=== PATIENT | female | born 1980 | race Two or more races ===

== ENCOUNTER 2017-02-03 16:39 | Inpatient (IN) | payer OTHER ==
[2017-02-03 18:48] VITALS: BMI 23.4
--- NOTE | 2017-02-03 21:15 | HP ---
Admission ROS [facility] Chief Complaint: SEEKING REHAB SERVICES Allergies/Adverse Reactions: Allergies Allergy/AdvReac Type Severity Reaction Status Date / Time No Known Drug Allergies Allergy Unknown Verified 02/03/17 20:24 fish derived AdvReac Swelling Verified 02/03/17 20:24 History of Present Illness: 36 Y.O. WOMAN WITH A HISTORY OF CRACK-COCAINE DEPENDENCE IS HERE SEEKING REHAB SERVICES. SHE REPORTS SHE LAST COMPLETED REHAB IN June, AT [facility]. DOES NOT HAVE A SIGNIFICANT PERIOD CLEAN. Exam Limitations: No Limitations - Ebola screening Have you traveled outside of the country in the last 21 days: No Have you had contact with anyone from an Ebola affected area: No Have you been sick,other than usual withdrawal symptoms: No Do you have a fever: No - Review of Systems Constitutional: Loss of Appetite, Unintentional Wgt. Loss EENT: reports: No Symptoms Reported Respiratory: reports: No Symptoms reported Cardiac: reports: No Symptoms Reported GI: reports: No Symptoms Reported : reports: No Symptoms Reported Musculoskeletal: reports: No Symptoms Reported Integumentary: reports: No Symptoms Reported Neuro: reports: No Symptoms reported Endocrine: reports: No Symptoms Reported Hematology: reports: No Symptoms Reported Psychiatric: reports: Anxious, Depressed, other (BIPOLAR) Other Systems: Reviewed and Negative Patient History - Patient Medical History Hx Anemia: No Hx Asthma: No Hx Chronic Obstructive Pulmonary Disease (COPD): No Hx Cancer: No Hx Cardiac Disorders: No Hx Congestive Heart Failure: No Hx Hypertension: No Hx Hypercholesterolemia: No Hx Pacemaker: No HX Cerebrovascular Accident: No Hx Seizures: No Hx Dementia: No Hx Diabetes: No Hx Gastrointestinal Disorders: No Hx Liver Disease: No Hx Genitourinary Disorders: No Hx Sexually Transmitted Disorders: No Hx Renal Disease (ESRD): No Hx Thyroid Disease: No Hx Human Immunodeficiency Virus (HIV): No (negative) Hx Hepatitis C: No Hx Depression: Yes Hx Suicide Attempt: No Hx Bipolar Disorder: Yes Hx Schizophrenia: No - Patient Surgical History Past Surgical History: No - PPD History Previous Implant?: Yes Documented Results: Negative w/proof Date: 05/17/15 Results: 0mm PPD to be Administered?: Yes - Reproductive History Patient is a Female of Child Bearing Age (11 -55 yrs old): Yes Last Menstrual Period: 02/03/17 Patient : No - Smoking Cessation Smoking history: Current every day smoker Have you smoked in the past 12 months: Yes Aproximately how many cigarettes per day: 3 Hx Chewing Tobacco Use: No Initiated information on smoking cessation: Yes 'Breaking Loose' booklet given: 02/03/17 - Substance & Tx. History Hx Alcohol Use: No Hx Substance Use: Yes Substance Use Type: Cocaine Hx Substance Use Treatment: Yes (REHAB: 06/2016 AT [facility] ) - Substances Abused Cocaine Route: Smoking Frequency: Daily Amount used: $200 Age of first use: 29 Date of Last Use: 02/02/17 Family Disease History - Family Disease History Family Disease History: Other: Mother (alcohol dependence ) Admission Physical Exam [facility] - Vital Signs Vital Signs: Vital Signs - 24 hr 02/03/17 18:46 Temperature 97.7 F Pulse Rate 83 Respiratory 20 Rate Blood Pressure 98/61 - Physical General Appearance: Yes: Disheveled, Irritable, Anxious HEENTM: Yes: Hearing grossly Normal, Normocephalic, Normal Voice Respiratory: Yes: Chest Non-Tender, Lungs Clear, Normal Breath Sounds, No Respiratory Distress, No Accessory Muscle Use Neck: Yes: No masses,lesions,Nodules, Trachea in good position Breast: Yes: Breast Exam Deferred Cardiology: Yes: Regular Rhythm, Regular Rate Abdominal: Yes: Non Tender, Flat, Soft Genitourinary: Yes: Other (NO COMPLAINTS REPORTED) Back: Yes: Normal Inspection Musculoskeletal: Yes: full range of Motion, Gait Steady, Pelvis Stable Extremities: Yes: Normal Capillary Refill, Normal Inspection, Non-Tender 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, Fully Oriented, Alert, Normal Mood/ Affect, Normal Response Integumentary: Yes: Normal Color, Dry, Warm Lymphatic: Yes: Within Normal Limits - Diagnostic (1) Cocaine dependence Current Visit: Yes Status: Chronic Cleared for Admission [facility] - Detox or Rehab [facility] Level of Care: Observation Bed Detox Regimen/Protocol: Not Applicable Claeared for Rehab Admission: Yes [facility] Breath Alcohol Content Breath Alcohol Content: 0 Urine Pregancy Test - Result Urine Test Results: Negative- NO Line Present Urine Drug Screen - Results Drug Screen Negative: No Urine Drug Screen Results: THC-Marijuana, MARIANELA-Cocaine Inpatient Rehab Admission - Initial Determination Are CD services needed?: Yes Free of communicable disease: Yes Not in need of hospitalization: Yes - Rehab Admission Criteria Previous failed treatment: Yes Poor recovery environment: Yes Comorbidities: No Lacks judgement: No Patient is meeting Inpatient Rehab admission criteria:: Yes
[2017-02-03] MEDS ORDERED: MAG HYDROX/AL HYDROX/SIMETH 30 ML UNIT-DOSE CUP PO PRN (21:23)
[2017-02-03] MEDS ORDERED: P-EPHED 60MG/TRIPROLIDI 2.5MG TABLET PO PRN (21:23)
[2017-02-03] MEDS ORDERED: ACETAMINOPHEN 325 MG TABLET (FP) PO PRN (21:23)
[2017-02-03] MEDS ORDERED: LOPERAMIDE HCL 2 MG CAPSULE PO PRN (21:23)
[2017-02-03] MEDS ORDERED: IBUPROFEN 400 MG TABLET (FP) PO PRN (21:23)
[2017-02-03] MEDS ORDERED: guaiFENesin/D-METHORPHAN HB 10 ML UNIT-DOSE CUPS PO PRN (21:23)
[2017-02-03] MEDS ORDERED: MENTHOL/PHENOL 1 EACH UD MM PRN (21:23)
[2017-02-03] MEDS ORDERED: MAGNESIUM HYDROX 2400MG/30ML ORAL SUSPENSION 30 ML CUP PO PRN (21:23)
[2017-02-03] MEDS ORDERED: MAGNESIUM CITRATE 300 ML BOTTLE PO PRN (21:23)
[2017-02-03] MEDS ORDERED: QUEtiapine FUMARATE 100 MG TABLET (FP) PO SCH (22:00)
--- NOTE | 2017-02-03 23:07 | PN ---
[facility] Progress Note Note: Psychiatry Attending's vp production note : Called to enter orders for seroquel + trazodone. 36 y/o female with Bipolar Disorder.Known to [facility]. Addressing cocaine dependence.Non-adherent to [facility]PD care. Evidenced by last script for seroquel 300 mg po bid issued 08/20/16. Ms Granado is no longer followed at [facility] OPD clinic ([place]). Discharged from that program.Reason : not offered. Patient admits to lack of compliance with medication for " more than two months. " Currrently requesting seroquel 300 mg po bid + trazodone 150 mg po hs. No scripts for trazodone found through review of pharmacy claims. Psychiatric history discussed with patient via telephone. No labs available. test : negative, as per [facility] report. Current vitals (repeat) : BP = 106/71 P = 72 . Patient's discourse : coherent,logical and relevant.No acute complaints. Plan : Seroquel 100 mg po hs (one dose). Side effects/benefits discussed with patient.Agrees with careplan. Will meet with patient in AM for further discussion of medications. Previous records are revisited.Case discussed with nurse on duty.
[2017-02-03 23:31] LABS: URINE APPEARANCE SLCLOUDY; URINE BILIRUBIN NEGATIVE (NEGATIVE); URINE BLOOD 3+ (NEGATIVE); URINE COLOR AMBER; URINE GLUCOSE (UA) NEGATIVE (NEGATIVE); URINE KETONE NEGATIVE (NEGATIVE); URINE NITRITE NEGATIVE (NEGATIVE)
[2017-02-03] MEDS: THIAMINE HCL 100 MG TABLET (FP) PO SCH (23:35)
[2017-02-03 23:38] LABS: URINE PROTEIN 1+ (NEGATIVE)
[2017-02-03 23:43] LABS: URINE BACTERIA RARE /hpf (NONE SEEN); URINE MUCUS MANY; URINE RBC 166 /hpf (0-3); URINE WBC 7 /hpf (3-5)
[2017-02-04] MEDS: PRENATAL VITAMINS W/ FOLIC ACID TABLET (FP) PO SCH (09:38)
--- NOTE | 2017-02-04 10:37 | PN ---
[facility] Progress Note Note: Attending's note : Met with patient. Medications discussed.
[2017-02-04 10:53] LABS: MCH 31.2 pg (25.7-33.7); MCHC 33.4 g/dl (32.0-36.0); MEAN CELL VOLUME 93.3 fl (80-96); MEAN PLT VOLUME 8.7 fl (7.5-11.1); PLATELET COUNT 254 K/MM3 (134-434); RDW 14.5 % (11.6-15.6); WHITE BLOOD COUNT 6.6 K/mm3 (4.0-10.0)
[2017-02-04 11:04] LABS: ALBUMIN 2.9 g/dl (3.4-5.0); ALK PHOS 50 U/L (45-117); ANION GAP 9 (8-16); BILIRUBIN,TOTAL 0.2 mg/dL (0.2-1.0); CO2 27 mmol/L (21-32); CREATININE 0.7 mg/dL (0.55-1.02); GLUCOSE,RANDOM 86 mg/dL (74-106); SGOT/AST 9 U/L (15-37); SGPT/ALT 17 U/L (12-78); TOT PROT 5.6 g/dl (6.4-8.2)
[2017-02-04] MEDS: QUEtiapine FUMARATE 100 MG TABLET (FP) PO SCH ×2 (11:47→21:36)
[2017-02-04 11:53] LABS: URINE LEUK ESTERASE Negative (NEGATIVE)
--- NOTE | 2017-02-04 12:52 | EKG ---
Test Reason : Blood Pressure : / mmHG Vent. Rate : 069 BPM Atrial Rate : 072 BPM P-R Int : 128 ms QRS Dur : 072 ms QT Int : 430 ms P-R-T Axes : 050 050 025 degrees QTc Int : 460 ms SINUS RHYTHM WITH PREMATURE SUPRAVENTRICULAR COMPLEXES OTHERWISE NORMAL ECG NO PREVIOUS ECGS AVAILABLE Confirmed by ROSI HEARD MD ([id number]) on 02/04/2017 12:51:57 PM Referred By: Confirmed By:ROSI HEARD MD
[2017-02-04 13:26] LABS: HIV 1 & 2 AB NEGATIVE; HIV 1 AGp24 NEGATIVE
[2017-02-04] MEDS: THIAMINE HCL 100 MG TABLET (FP) PO SCH (21:36)
[2017-02-05] MEDS: PRENATAL VITAMINS W/ FOLIC ACID TABLET (FP) PO SCH (09:56)
[2017-02-05] MEDS: QUEtiapine FUMARATE 100 MG TABLET (FP) PO SCH ×2 (09:56→21:32)
--- NOTE | 2017-02-05 11:42 | EKG ---
Test Reason : Blood Pressure : / mmHG Vent. Rate : 072 BPM Atrial Rate : 072 BPM P-R Int : 130 ms QRS Dur : 074 ms QT Int : 434 ms P-R-T Axes : -02 048 039 degrees QTc Int : 475 ms NORMAL SINUS RHYTHM NORMAL ECG WHEN COMPARED WITH ECG OF 03-FEB-2017 22:06, PREMATURE SUPRAVENTRICULAR COMPLEXES ARE NO LONGER PRESENT Confirmed by ROSI HEARD MD ([id number]) on 02/05/2017 11:42:28 AM Referred By: Confirmed By:ROSI HEARD MD
[2017-02-05] MEDS: THIAMINE HCL 100 MG TABLET (FP) PO SCH (21:32)
[2017-02-06] MEDS: PRENATAL VITAMINS W/ FOLIC ACID TABLET (FP) PO SCH (10:01)
[2017-02-06] MEDS: QUEtiapine FUMARATE 100 MG TABLET (FP) PO SCH ×2 (10:01→21:29)
--- NOTE | 2017-02-06 10:56 | HP ---
Psychiatrist Admission - Data Date of interview: 02/06/17 Admission source: [facility] Identifying data: This is one of the multiple admissions to [address] [place] [address] for this 36 years old female mother of 2 daughters ,resides with family,unemolyed. Medical History: unremarkable Psychiatric History: Patient started to see a psychiatrist since childhood when her mother abandonded her.She was placed on psychoatherapy.Patient was dx with Bipolar disorder about 11 years ago.No psychiatric hospitalizations,just a few ER visits.Patient stopped to see a psychiatrsit at [facility] in [facility] since she relapsed on drugs.Medications she was on recently:Seroquel 300 mg po hs and Trazodone 150 mg po hs. Physical/Sexual Abuse/Trauma History: denies Vital Signs: Vital Signs - 24 hr 02/06/17 02/06/17 03:30 07:32 Temperature 98.3 F Pulse Rate 73 Respiratory 18 18 Rate Blood Pressure 110/76 Allergies/Adverse Reactions: Allergies Allergy/AdvReac Type Severity Reaction Status Date / Time No Known Drug Allergies Allergy Unknown Verified 02/03/17 20:24 fish derived AdvReac Swelling Verified 02/03/17 20:24 Date of last physical exam: 02/03/17 Concur with the findings of this exam: Yes - Substance Abuse/Tx History Hx Alcohol Use: Yes (reports drinking since 13 yo,beer a few packs,vodka daily) Hx Substance Use: Yes (marijuana since 13 yo,cocaine 19 yo) Substance Use Type: Alcohol, Cocaine, Marijuana Hx Substance Use Treatment: Yes (completed this program in May 2015) Mental Status Exam - Mental Status Exam Alert and Oriented to: Time, Place, Person Cognitive Function: Grossly Intact Patient Appearance: Unkempt Mood: Sad, Anxious Affect: Mood Congruent, Labile Patient Behavior: Appropriate, Cooperative Speech Pattern: Clear Voice Loudness: Normal Thought Process: Goal Oriented Thought Disorder: Being Controlled Hallucinations: Denies Suicidal Ideation: Denies Homicidal Ideation: Denies Insight/Judgement: Fair Sleep: Difficulty falling asleep Appetite: Fair Muscle strength/Tone: Normal Gait/Station: Normal Psychiatric Findings - Problem List ([place] 1, 2,3) (1) Cocaine dependence Current Visit: Yes Status: Chronic (2) Alcohol dependence Current Visit: Yes Status: Chronic (3) Bipolar 2 disorder Current Visit: Yes Status: Chronic (4) Cannabis dependence Current Visit: Yes Status: Chronic - Initial Treatment Plan Initial Treatment Plan: Continue Seroquel 100 mg po bid and Trazodone 150 mg po hs.Will monitor progress.
[2017-02-06] MEDS: metroNIDAZOLE 250 MG TABLET PO SCH ×2 (14:12→21:29)
[2017-02-06] MEDS: THIAMINE HCL 100 MG TABLET (FP) PO SCH (21:29)
[2017-02-06] MEDS: MICONAZOLE NITRATE 100 MG SUPP SUPP.VAG PV SCH (21:30)
[2017-02-06] MEDS: traZODone HCL 50 MG TABLET (FP) PO SCH (21:31)
[2017-02-07] MEDS: PRENATAL VITAMINS W/ FOLIC ACID TABLET (FP) PO SCH (10:22)
[2017-02-07] MEDS: metroNIDAZOLE 250 MG TABLET PO SCH ×2 (10:22→21:36)
[2017-02-07] MEDS: QUEtiapine FUMARATE 100 MG TABLET (FP) PO SCH ×2 (10:22→21:36)
[2017-02-07] MEDS: traZODone HCL 50 MG TABLET (FP) PO SCH (21:36)
[2017-02-07] MEDS: THIAMINE HCL 100 MG TABLET (FP) PO SCH (21:36)
[2017-02-07] MEDS ORDERED: PT OWN MED DRAWER 7, Y5N ONE (21:37)
[2017-02-07] MEDS: MICONAZOLE NITRATE 100 MG SUPP SUPP.VAG PV SCH (21:37)
[2017-02-08] MEDS: metroNIDAZOLE 250 MG TABLET PO SCH ×2 (10:26→21:39)
[2017-02-08] MEDS: QUEtiapine FUMARATE 100 MG TABLET (FP) PO SCH ×2 (10:26→21:39)
[2017-02-08] MEDS: PRENATAL VITAMINS W/ FOLIC ACID TABLET (FP) PO SCH (10:27)
[2017-02-08] MEDS: hydrOXYzine PAMOATE 50 MG CAPSULE (FP) PO PRN (15:25)
[2017-02-08] MEDS: traZODone HCL 50 MG TABLET (FP) PO SCH (21:39)
[2017-02-08] MEDS: MICONAZOLE NITRATE 100 MG SUPP SUPP.VAG PV SCH (21:39)
[2017-02-08] MEDS: THIAMINE HCL 100 MG TABLET (FP) PO SCH (21:39)
[2017-02-08] MEDS: diphenhydrAMINE HCL 50 MG CAPSULE PO PRN (22:16)
[2017-02-09] MEDS: PRENATAL VITAMINS W/ FOLIC ACID TABLET (FP) PO SCH (10:16)
[2017-02-09] MEDS: metroNIDAZOLE 250 MG TABLET PO SCH ×2 (10:16→21:32)
[2017-02-09] MEDS: QUEtiapine FUMARATE 100 MG TABLET (FP) PO SCH ×2 (10:16→21:32)
[2017-02-09] MEDS: traZODone HCL 50 MG TABLET (FP) PO SCH (21:32)
[2017-02-09] MEDS: THIAMINE HCL 100 MG TABLET (FP) PO SCH (21:33)
[2017-02-09] MEDS: MICONAZOLE NITRATE 100 MG SUPP SUPP.VAG PV SCH (21:33)
[2017-02-09] MEDS: diphenhydrAMINE HCL 50 MG CAPSULE PO PRN (21:34)
[2017-02-10] MEDS: metroNIDAZOLE 250 MG TABLET PO SCH ×2 (10:46→21:40)
[2017-02-10] MEDS: QUEtiapine FUMARATE 100 MG TABLET (FP) PO SCH (10:46)
[2017-02-10] MEDS: PRENATAL VITAMINS W/ FOLIC ACID TABLET (FP) PO SCH (10:46)
[2017-02-10] MEDS: hydrOXYzine PAMOATE 50 MG CAPSULE (FP) PO PRN (18:30)
[2017-02-10] MEDS: traZODone HCL 50 MG TABLET (FP) PO SCH (21:40)
[2017-02-10] MEDS: QUEtiapine FUMARATE 50 MG TABLET PO SCH (21:40)
[2017-02-10] MEDS: diphenhydrAMINE HCL 50 MG CAPSULE PO PRN (21:40)
[2017-02-10] MEDS: THIAMINE HCL 100 MG TABLET (FP) PO SCH (21:40)
[2017-02-10] MEDS ORDERED: PT OWN MED DRAWER 7, Y5N ONE (21:42)
[2017-02-10] MEDS: MICONAZOLE NITRATE 100 MG SUPP SUPP.VAG PV SCH (21:43)
[2017-02-11] MEDS: metroNIDAZOLE 250 MG TABLET PO SCH ×2 (10:14→21:32)
[2017-02-11] MEDS: PRENATAL VITAMINS W/ FOLIC ACID TABLET (FP) PO SCH (10:14)
[2017-02-11] MEDS: QUEtiapine FUMARATE 100 MG TABLET (FP) PO SCH (10:15)
[2017-02-11] MEDS ORDERED: QUEtiapine FUMARATE 25 MG TABLET (FP) ONE (18:49)
[2017-02-11] MEDS: traZODone HCL 50 MG TABLET (FP) PO SCH (21:32)
[2017-02-11] MEDS: THIAMINE HCL 100 MG TABLET (FP) PO SCH (21:32)
[2017-02-11] MEDS: MICONAZOLE NITRATE 100 MG SUPP SUPP.VAG PV SCH (21:33)
[2017-02-11] MEDS: QUEtiapine FUMARATE 50 MG TABLET PO SCH (21:33)
[2017-02-11] MEDS: diphenhydrAMINE HCL 50 MG CAPSULE PO PRN (21:34)
[2017-02-12] MEDS: QUEtiapine FUMARATE 100 MG TABLET (FP) PO SCH (10:11)
[2017-02-12] MEDS: metroNIDAZOLE 250 MG TABLET PO SCH ×2 (10:11→21:31)
[2017-02-12] MEDS: PRENATAL VITAMINS W/ FOLIC ACID TABLET (FP) PO SCH (10:11)
[2017-02-12] MEDS ORDERED: PT OWN MED DRAWER 7, Y5N ONE (18:38)
[2017-02-12] MEDS: traZODone HCL 50 MG TABLET (FP) PO SCH (21:31)
[2017-02-12] MEDS: QUEtiapine FUMARATE 50 MG TABLET PO SCH (21:32)
[2017-02-12] MEDS: THIAMINE HCL 100 MG TABLET (FP) PO SCH (21:32)
[2017-02-12] MEDS: MICONAZOLE NITRATE 100 MG SUPP SUPP.VAG PV SCH (21:32)
[2017-02-13] MEDS: PRENATAL VITAMINS W/ FOLIC ACID TABLET (FP) PO SCH (10:37)
[2017-02-13] MEDS: QUEtiapine FUMARATE 100 MG TABLET (FP) PO SCH (10:37)
[2017-02-13] MEDS: metroNIDAZOLE 250 MG TABLET PO SCH (10:38)
--- NOTE | 2017-02-13 12:28 | PN ---
Psychiatric Progress Note Vital Signs: Vital Signs Period Temp Pulse Resp BP Sys/Navas Pulse Ox Last 24 Hr 97.8 F 83 16-18 106/68 Date of Session: 02/13/17 Chief Complaint:: " I am not at my regular dose of seroquel.I get anxious." HPI: Approached by patient with complaints of anxiety and refractory insomnia.Eager to get back to her " regular " dose of seroquel (300 mg po bid as per self-report). ROS: Unremarkable. Current Medications: Active Medications Generic Name Dose Route Start Last Admin Trade Name Freq PRN Reason Stop Dose Admin Acetaminophen 650 mg 02/03/17 21:23 Tylenol - PO Q4H PRN PAIN Al Hydroxide/Mg Hydroxide 30 ml 02/03/17 21:23 Mylanta Oral Suspension - PO Q6H PRN DYSPEPSIA Diphenhydramine HCl 50 mg 02/03/17 21:23 02/11/17 21:34 Benadryl - PO 50 mg HSMR1 PRN Administration INSOMNIA Eucalyptus/Menthol/Phenol/Sorbitol 1 each 02/03/17 21:23 Cepastat Lozenge - MM Q4H PRN SORE THROAT Guaifenesin 10 ml 02/03/17 21:23 Robitussin Dm - PO Q6H PRN COUGH Hydroxyzine Pamoate 50 mg 02/03/17 21:23 02/10/17 18:30 Vistaril - PO 50 mg Q4H PRN Administration AGITATION Ibuprofen 400 mg 02/03/17 21:23 Motrin - PO Q6H PRN SEVERE PAIN Loperamide HCl 4 mg 02/03/17 21:23 Imodium - PO Q6H PRN DIARRHEA Magnesium Citrate 300 ml 02/03/17 21:23 Citroma - PO Q48H PRN CONSTIPATION Magnesium Hydroxide 30 ml 02/03/17 21:23 Milk Of Magnesia - PO DAILY PRN CONSTIPATION Miconazole Nitrate 100 mg 02/06/17 22:00 02/12/17 21:32 Monistat-7 Vaginal Suppository - PV 1 supp HS ОЛЬГА Administration Multivit/Folic Acid/Iron 1 tab 02/04/17 10:00 02/13/17 10:37 Vitamins (Sjr) - PO 1 tab DAILY ОЛЬГА Administration Pseudoephedrine/Triprolidine 1 combo 02/03/17 21:23 Actifed - PO TID PRN NASAL CONGESTION Quetiapine Fumarate 200 mg 02/13/17 22:00 Seroquel - PO BID ОЛЬГА Thiamine HCl 100 mg 02/03/17 22:00 02/12/17 21:32 Vitamin B1 - PO 100 mg HS ОЛЬГА Administration Trazodone HCl 150 mg 02/06/17 22:00 02/12/17 21:31 Desyrel - PO 150 mg HS ОЛЬГА Administration Medication(s) Change(s): Seroquel is raised to 200 mg po bid (from 100 mg po bid ) with patient's verbal consent.Principles of sleep hygiene are also discussed with the patient. Current Side Effect: No Lab tests ordered: No Lab tests reviewed: Yes Provider note:: Patient is already known to this casualty underwriter (refer to my notes of + 02/04/17).Medications are reviewed.Patient is interviewed.She is casually attired,neat and well-related.Conversant and goal-directed.Fully aware of her medications.Patient declares that she is " still not at my best on the current dose of seroquel." Expects further titration as discussed with the patient on admission.Fair hospital course.Stable mental status.Patient maintains adequate rapport with staff. Total face to face time:: 30 Mental Status Exam - Mental Status Exam Alert and Oriented to: Time, Place, Person Cognitive Function: Good Patient Appearance: Well Groomed Mood: Hopeful, Euthymic Affect: Appropriate, Normal Range Patient Behavior: Appropriate, Cooperative Speech Pattern: Clear, Appropriate Voice Loudness: Normal Thought Process: Intact, Goal Oriented Thought Disorder: Not Present Hallucinations: Denies Suicidal Ideation: Denies Homicidal Ideation: Denies Insight/Judgement: Fair Sleep: Poorly, Difficulty falling asleep Appetite: Good Muscle strength/Tone: Normal Gait/Station: Normal Psychiatric Treatment Plan - Problem List (1) Alcohol dependence Current Visit: Yes (2) Cannabis dependence Current Visit: Yes (3) Cocaine dependence Current Visit: Yes (4) Bipolar disorder Current Visit: Yes Comment: On medications. (5) Substance induced mood disorder Current Visit: Yes (6) Insomnia Current Visit: Yes
[2017-02-13] MEDS: THIAMINE HCL 100 MG TABLET (FP) PO SCH (21:53)
[2017-02-13] MEDS: MICONAZOLE NITRATE 100 MG SUPP SUPP.VAG PV SCH (21:53)
[2017-02-13] MEDS: traZODone HCL 50 MG TABLET (FP) PO SCH (21:53)
[2017-02-13] MEDS: QUEtiapine FUMARATE 200 MG TABLET PO SCH (21:54)
[2017-02-14] MEDS: PRENATAL VITAMINS W/ FOLIC ACID TABLET (FP) PO SCH (10:24)
[2017-02-14] MEDS: QUEtiapine FUMARATE 200 MG TABLET PO SCH (10:24)
[2017-02-14] MEDS ORDERED: PT OWN MED DRAWER 7, Y5N ONE (21:39)
[2017-02-14] MEDS: THIAMINE HCL 100 MG TABLET (FP) PO SCH (21:40)
[2017-02-14] MEDS: traZODone HCL 50 MG TABLET (FP) PO SCH (21:40)
[2017-02-14] MEDS: QUEtiapine FUMARATE 100 MG TABLET (FP) PO SCH (21:40)
[2017-02-14] MEDS: MICONAZOLE NITRATE 100 MG SUPP SUPP.VAG PV SCH (21:42)
[2017-02-15] MEDS: QUEtiapine FUMARATE 100 MG TABLET (FP) PO SCH ×2 (10:27→21:30)
[2017-02-15] MEDS: PRENATAL VITAMINS W/ FOLIC ACID TABLET (FP) PO SCH (10:27)
--- NOTE | 2017-02-15 10:51 | PN ---
Psychiatric Progress Note Vital Signs: Vital Signs Period Temp Pulse Resp BP Sys/Navas Pulse Ox Last 24 Hr 97.8 F 76 16-18 112/77 Date of Session: 02/15/17 Chief Complaint:: Discharge visit HPI: Cocaine dependence Alcohol dependence and Cannabis dependence comorbid with Bipolar disorder. ROS: Unremarkable Current Medications: Active Medications Generic Name Dose Route Start Last Admin Trade Name Freq PRN Reason Stop Dose Admin Acetaminophen 650 mg 02/03/17 21:23 Tylenol - PO Q4H PRN PAIN Al Hydroxide/Mg Hydroxide 30 ml 02/03/17 21:23 Mylanta Oral Suspension - PO Q6H PRN DYSPEPSIA Diphenhydramine HCl 50 mg 02/03/17 21:23 02/11/17 21:34 Benadryl - PO 50 mg HSMR1 PRN Administration INSOMNIA Eucalyptus/Menthol/Phenol/Sorbitol 1 each 02/03/17 21:23 Cepastat Lozenge - MM Q4H PRN SORE THROAT Guaifenesin 10 ml 02/03/17 21:23 Robitussin Dm - PO Q6H PRN COUGH Hydroxyzine Pamoate 50 mg 02/03/17 21:23 02/10/17 18:30 Vistaril - PO 50 mg Q4H PRN Administration AGITATION Ibuprofen 400 mg 02/03/17 21:23 Motrin - PO Q6H PRN SEVERE PAIN Loperamide HCl 4 mg 02/03/17 21:23 Imodium - PO Q6H PRN DIARRHEA Magnesium Citrate 300 ml 02/03/17 21:23 Citroma - PO Q48H PRN CONSTIPATION Magnesium Hydroxide 30 ml 02/03/17 21:23 Milk Of Magnesia - PO DAILY PRN CONSTIPATION Miconazole Nitrate 100 mg 02/06/17 22:00 02/14/17 21:42 Monistat-7 Vaginal Suppository - PV Not Given HS [facility] Multivit/Folic Acid/Iron 1 tab 02/04/17 10:00 02/15/17 10:27 Vitamins (Sjr) - PO 1 tab DAILY ОЛЬГА Administration Pseudoephedrine/Triprolidine 1 combo 02/03/17 21:23 Actifed - PO TID PRN NASAL CONGESTION Quetiapine Fumarate 200 mg 02/14/17 22:00 02/15/17 10:27 Seroquel - PO 200 mg BID ОЛЬГА Administration Thiamine HCl 100 mg 02/03/17 22:00 02/14/17 21:40 Vitamin B1 - PO 100 mg HS ОЛЬГА Administration Trazodone HCl 150 mg 02/06/17 22:00 02/14/17 21:40 Desyrel - PO 150 mg HS ОЛЬГА Administration Current Side Effect: No Lab tests ordered: No Lab tests reviewed: Yes Provider note:: patient will complete this program tomorrow 02/16/17.She has met her treatment goals and will continue to address her isssues on outpatient basis at Day rehabiliation program affiliated to [facility].Patient reports finding that Trazodone 150 mg po hs and Seroquel 200 mg po bid help to cope with mood indstability,insomnia,depression.scripts for 30 days provided. Patient identifies areas of difficulties,behaviors which contribute to relapse and coping skills,support she can utilze to maintain recovery. patient is stable for discharge tomorrow 02/16/17. Total face to face time:: 30 Mental Status Exam - Mental Status Exam Alert and Oriented to: Time, Place, Person Cognitive Function: Grossly Intact Patient Appearance: Well Groomed Mood: Hopeful, Euthymic Affect: Appropriate, Mood Congruent Patient Behavior: Cooperative Speech Pattern: Clear Thought Process: Goal Oriented Thought Disorder: Not Present Hallucinations: Denies Suicidal Ideation: Denies Homicidal Ideation: Denies Insight/Judgement: Fair Sleep: Fair Appetite: Fair Muscle strength/Tone: Normal Gait/Station: Normal Psychiatric Treatment Plan - Problem List (1) Cocaine dependence Current Visit: Yes (2) Alcohol dependence Current Visit: Yes (3) Bipolar 2 disorder Current Visit: Yes (4) Cannabis dependence Current Visit: Yes
[2017-02-15] MEDS: traZODone HCL 50 MG TABLET (FP) PO SCH (21:30)
[2017-02-15] MEDS: THIAMINE HCL 100 MG TABLET (FP) PO SCH (21:30)
[2017-02-15] MEDS: MICONAZOLE NITRATE 100 MG SUPP SUPP.VAG PV SCH (21:32)
[2017-02-16 07:31] VITALS: BP 99/69; PULSE 73; TEMP 98.1
[2017-02-16] MEDS: PRENATAL VITAMINS W/ FOLIC ACID TABLET (FP) PO SCH (10:04)
[2017-02-16] MEDS: QUEtiapine FUMARATE 100 MG TABLET (FP) PO SCH (10:04)
== END 2017-02-16 10:20 | disposition home or self-care (01) | DRG 772 ==
LOC: YASAS 16:39 → Y3E 20:58
PROVIDERS: ADMIT Psychiatry & Neurology Psychiatry; ATTEND Psychiatry & Neurology Psychiatry
PROC: HZ42ZZZ Group Counseling for Substance Abuse Treatment, Cognitive-Behavioral (ICD-10-PCS; principal; 2017-02-03)
DX: F10.20 Alcohol dependence, uncomplicated (principal); F14.20 Cocaine dependence, uncomplicated; F12.20 Cannabis dependence, uncomplicated; F17.210 Nicotine dependence, cigarettes, uncomplicated; F31.81 Bipolar II disorder; F19.24 Other psychoactive substance dependence with psychoactive substance-induced mood disorder; G47.00 Insomnia, unspecified; Z91.013 Allergy to seafood
CPT/HCPCS: 36415; 80053; 81003; 81015; 85027; 86593; 87389; 93005; 93010

== ENCOUNTER 2017-07-07 12:02 | Inpatient (IN) | payer OTHER ==
[2017-07-07 14:50] VITALS: BMI 25.0
--- NOTE | 2017-07-07 16:23 | HP ---
CIWA Score - CIWA Score Nausea/Vomitin Muscle Tremors: 3 Anxiety: 3 Agitation: 3 Paroxysmal Sweats: 3 Orientation: 0-Oriented Tacttile Disturbances: 0-None Auditory Disturbances: 0-None Visual Disturbances: 0-None Headache: 1-Very Mild CIWA-Ar Total Score: 16 Admission ROS S - HPI Chief Complaint: alcohol withdrawal sx Allergies/Adverse Reactions: Allergies Allergy/AdvReac Type Severity Reaction Status Date / Time No Known Drug Allergies Allergy Unknown Verified 07/07/17 15:52 fish derived AdvReac Severe Swelling Verified 07/07/17 15:52 History of Present Illness: 37 yo f with h/o chronic alcoholism and crack cocaine dependence requesting inpatient detoxification from alcohol because of alcohol withdrawal symptoms no h/o seizures no h/o DTS no si at this time, suicide attempts x2 in [place]. PMHX anxiety, bipolar depression on meds, insomna and thristy dehydrated Exam Limitations: No Limitations - Ebola screening Have you traveled outside of the country in the last 21 days: No Have you had contact with anyone from an Ebola affected area: No Have you been sick,other than usual withdrawal symptoms: No Do you have a fever: No - Review of Systems Constitutional: Chills, Diaphoresis, Night Sweats, Changes in sleep, Unintentional Wgt. Loss EENT: reports: No Symptoms Reported Respiratory: reports: No Symptoms reported Cardiac: reports: No Symptoms Reported GI: reports: Nausea, Poor Appetite, Poor Fluid Intake, Indigestion, Abdominal cramping : reports: No Symptoms Reported Musculoskeletal: reports: No Symptoms Reported Integumentary: reports: Flushing, Sweating Neuro: reports: Headache, Numbness, Paresthesia, Tingling, Tremors Endocrine: reports: Increased Thirst Hematology: reports: No Symptoms Reported Psychiatric: reports: Judgement Intact, Mood/Affect Appropiate, Orientated x3, Anxious, Depressed Other Systems: Reviewed and Negative Patient History - Patient Medical History Hx Anemia: No Hx Asthma: No Hx Chronic Obstructive Pulmonary Disease (COPD): No Hx Cancer: No Hx Cardiac Disorders: No Hx Congestive Heart Failure: No Hx Hypertension: No Hx Hypercholesterolemia: No Hx Pacemaker: No HX Cerebrovascular Accident: No Hx Seizures: No Hx Dementia: No Hx Diabetes: No Hx Gastrointestinal Disorders: No Hx Liver Disease: No Hx Genitourinary Disorders: No Hx Sexually Transmitted Disorders: Yes (chlamydia) Hx Renal Disease (ESRD): No Hx Thyroid Disease: No Hx Human Immunodeficiency Virus (HIV): No (negative) Hx Hepatitis C: No Hx Depression: Yes Hx Suicide Attempt: Yes (pill overdose in 2013 no si at this time, x2 in past) Hx Bipolar Disorder: Yes Hx Schizophrenia: No - Patient Surgical History Past Surgical History: No Hx Neurologic Surgery: No Hx Cataract Extraction: No Hx Cardiac Surgery: No Hx Lung Surgery: No Hx Breast Surgery: No Hx Breast Biopsy: No Hx Abdominal Surgery: No Hx Appendectomy: No Hx Cholecystectomy: No Hx Genitourinary Surgery: No Hx Section: No Hx Orthopedic Surgery: No Anesthesia Reaction: No - PPD History Previous Implant?: Yes Documented Results: Negative w/proof Implanted On Prior [facility] Admission?: Yes Date: 02/05/17 Results: 0 mm PPD to be Administered?: No - Reproductive History Patient is a Female of Child Bearing Age (11 -55 yrs old): Yes Last Menstrual Period: 06/22/17 Patient : No - Smoking Cessation Smoking history: Current every day smoker Have you smoked in the past 12 months: Yes Aproximately how many cigarettes per day: 6 Hx Chewing Tobacco Use: No Initiated information on smoking cessation: Yes 'Breaking Loose' booklet given: 07/07/17 - Substance & Tx. History Hx Alcohol Use: Yes Hx Substance Use: Yes Substance Use Type: Alcohol, Cocaine, Marijuana Hx Substance Use Treatment: Yes (detox/rehab [facility] in past) - Substances Abused Crack Route: Smoking Frequency: Daily Amount used: $200 Age of first use: 28 Date of Last Use: 07/06/17 Alcohol-cognac Route: Oral Frequency: Daily Amount used: 2 pts. Age of first use: 13 Date of Last Use: 07/07/17 Marijuana Route: Smoking Frequency: 3-6 times per week Amount used: $10 Age of first use: 14 Date of Last Use: 07/05/17 Family Disease History - Family Disease History Family Disease History: Other: Mother (alcohol dependence ) Admission Physical Exam [facility] - Vital Signs Vital Signs: Vital Signs - 24 hr 07/07/17 14:46 Temperature 98.9 F Pulse Rate 122 H Respiratory 20 Rate Blood Pressure 127/74 - Physical General Appearance: Yes: Nourished, Appropriately Dressed, Disheveled, Mild Distress, Tremorous, Irritable, Sweating, Anxious HEENTM: Yes: Within Normal Limits, EOMI, Hearing grossly Normal, Normal ENT Inspection, Normocephalic, Normal Voice, NIKKI, Pharynx Normal Respiratory: Yes: Within Normal Limits, Chest Non-Tender, Lungs Clear, Normal Breath Sounds, No Respiratory Distress, No Accessory Muscle Use Neck: Yes: Within Normal Limits, No masses,lesions,Nodules, Supple Breast: Yes: Breast Exam Deferred Cardiology: Yes: Within Normal Limits, Regular Rhythm, Regular Rate, S1, S2 Abdominal: Yes: Within Normal Limits, Normal Bowel Sounds, Non Tender, Flat, Soft, Increased Bowel Sounds Genitourinary: Yes: Within Normal Limits Back: Yes: Within Normal Limits, Normal Inspection Musculoskeletal: Yes: Within Normal Limits, full range of Motion, Gait Steady, Pelvis Stable Extremities: Yes: Normal Capillary Refill, Normal Range of Motion, Non-Tender, Tremors 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 (2) Insomnia Current Visit: No Status: Acute (3) Substance induced mood disorder Current Visit: No Status: Acute (4) Acne Current Visit: No Status: Chronic Qualifiers: Acne type: acne vulgaris Qualified Code(s): L70.0 - Acne vulgaris (5) Bipolar 2 disorder Current Visit: No Status: Chronic (6) Cannabis dependence Current Visit: No Status: Chronic (7) Cocaine dependence Current Visit: No Status: Chronic (8) Alcohol dependence with uncomplicated withdrawal Current Visit: Yes Status: Acute (9) Dehydration Current Visit: Yes Status: Acute [facility] Breath Alcohol Content Breath Alcohol Content: 0.063 Urine Pregancy Test - Result Urine Test Results: Negative- NO Line Present Urine Drug Screen - Results Drug Screen Negative: No Urine Drug Screen Results: THC-Marijuana, MARIANELA-Cocaine, BZO-Benzodiazepines
[2017-07-07] MEDS ORDERED: ACETAMINOPHEN 325 MG TABLET (FP) PO PRN (16:58)
[2017-07-07] MEDS ORDERED: guaiFENesin/D-METHORPHAN HB 10 ML UNIT-DOSE CUPS PO PRN (16:58)
[2017-07-07] MEDS ORDERED: P-EPHED 60MG/TRIPROLIDI 2.5MG TABLET PO PRN (16:58)
[2017-07-07] MEDS ORDERED: NICOTINE POLACRILEX 2 MG GUM BC PRN (16:58)
[2017-07-07] MEDS ORDERED: MAG HYDROX/AL HYDROX/SIMETH 30 ML UNIT-DOSE CUP PO PRN (16:58)
[2017-07-07] MEDS ORDERED: chlordiazePOXIDE HCL 25 MG CAPSULE PO PRN (16:58)
[2017-07-07] MEDS ORDERED: MAGNESIUM CITRATE 300 ML BOTTLE PO PRN (16:58)
[2017-07-07] MEDS ORDERED: LOPERAMIDE HCL 2 MG CAPSULE PO PRN (16:58)
[2017-07-07] MEDS ORDERED: IBUPROFEN 400 MG TABLET (FP) PO PRN (16:58)
[2017-07-07] MEDS ORDERED: MENTHOL/PHENOL 1 EACH UD MM PRN (16:58)
[2017-07-07] MEDS ORDERED: MAGNESIUM HYDROX 2400MG/30ML ORAL SUSPENSION 30 ML CUP PO PRN (16:58)
[2017-07-07] MEDS ORDERED: chlordiazePOXIDE HCL 25 MG CAPSULE PO ONE (17:30)
[2017-07-07] MEDS: CLINDAMYCIN PHOSPHATE 1% TOPICAL SOLUTION 30 ML BOTTLE TP SCH (21:22)
[2017-07-07] MEDS: NICOTINE 14 MG/24 HOURS TOPICAL PATCH TD SCH (21:23)
[2017-07-07] MEDS: chlordiazePOXIDE HCL 25 MG CAPSULE PO SCH (22:39)
[2017-07-07] MEDS: THIAMINE HCL 100 MG TABLET (FP) PO SCH (22:39)
[2017-07-07] MEDS: hydrOXYzine PAMOATE 50 MG CAPSULE (FP) PO PRN (22:39)
[2017-07-08] MEDS: chlordiazePOXIDE HCL 25 MG CAPSULE PO SCH ×2 (06:14→11:38)
[2017-07-08 10:09] LABS: HEMATOCRIT 35.7 % (32.4-45.2); MCH 31.8 pg (25.7-33.7); MCHC 33.6 g/dl (32.0-36.0); MEAN CELL VOLUME 94.5 fl (80-96); MEAN PLT VOLUME 8.1 fl (7.5-11.1); PLATELET COUNT 251 K/MM3 (134-434); RBC 3.78 M/mm3 (3.60-5.2); RDW 15.2 % (11.6-15.6); WHITE BLOOD COUNT 6.2 K/mm3 (4.0-10.0)
[2017-07-08 10:26] LABS: URINE APPEARANCE SLCLOUDY; URINE BILIRUBIN NEGATIVE (NEGATIVE); URINE BLOOD NEGATIVE (NEGATIVE); URINE COLOR YELLOW; URINE GLUCOSE (UA) 1+ (NEGATIVE); URINE KETONE 2+ (NEGATIVE); URINE LEUK ESTERASE NEGATIVE (NEGATIVE); URINE NITRITE NEGATIVE (NEGATIVE); URINE PROTEIN NEGATIVE (NEGATIVE); URINE UROBILINOGEN NEGATIVE mg/dL (0.2-1.0)
[2017-07-08 10:27] LABS: ALBUMIN 2.9 g/dl (3.4-5.0); ANION GAP 6 (8-16); CALCIUM 8.3 mg/dL (8.5-10.1); CHLORIDE 111 mmol/L (98-107); CO2 25 mmol/L (21-32); GLUCOSE,RANDOM 82 mg/dL (74-106); POTASSIUM 3.9 mmol/L (3.5-5.1); SODIUM 142 mmol/L (136-145)
[2017-07-08 10:32] LABS: ALK PHOS 44 U/L (45-117); BILIRUBIN,TOTAL 0.6 mg/dL (0.2-1.0); BLOOD UREA NITROGEN 8 mg/dL (7-18); CREATININE 0.7 mg/dL (0.55-1.02); SGOT/AST 13 U/L (15-37); SGPT/ALT 18 U/L (12-78); TOT PROT 5.6 g/dl (6.4-8.2)
[2017-07-08] MEDS: CLINDAMYCIN PHOSPHATE 1% TOPICAL SOLUTION 30 ML BOTTLE TP SCH (11:38)
[2017-07-08] MEDS: PRENATAL VITAMINS W/ FOLIC ACID TABLET (FP) PO SCH (11:38)
[2017-07-08] MEDS: NICOTINE 14 MG/24 HOURS TOPICAL PATCH TD SCH (11:38)
[2017-07-08] MEDS ORDERED: diazePAM 5 MG TABLET PO ONE (12:45)
[2017-07-08] MEDS: diazePAM 5 MG TABLET PO SCH ×2 (13:58→23:34)
[2017-07-08] MEDS ORDERED: QUEtiapine FUMARATE 50 MG TABLET PO ONE ×2 (14:47→18:30)
--- NOTE | 2017-07-08 15:59 | PN ---
S CIWA - CIWA Score Nausea/Vomitin Muscle Tremors: 3 Anxiety: 3 Agitation: 3 Paroxysmal Sweats: 1-Minimal Palms Moist Orientation: 0-Oriented Tacttile Disturbances: 1-Very Mild Itch/Numbness Auditory Disturbances: 1-Very Mild Visual Disturbances: 0-None Headache: 2-Mild CIWA-Ar Total Score: 17 BHS Progress Note (SOAP) Subjective: ALERT,IRRITABLE,ANXIOUS,INTERRUPTED SLEEP,TREMOR,PAIN IN THE BODY ANXIOUS Objective: 07/08/17 15:57 Vital Signs Temperature 97.7 F 07/08/17 14:19 Pulse Rate 90 07/08/17 14:19 Respiratory Rate 18 07/08/17 14:19 Blood Pressure 115/74 07/08/17 14:19 O2 Sat by Pulse Oximetry (%) EKG NSR,NORMAL ECG Laboratory Last Values WBC 6.2 K/mm3 (4.0-10.0) 07/08/17 07:40 RBC 3.78 M/mm3 (3.60-5.2) 07/08/17 07:40 Hgb 12.0 GM/dL (10.7-15.3) 07/08/17 07:40 Hct 35.7 % (32.4-45.2) 07/08/17 07:40 MCV 94.5 fl (80-96) 07/08/17 07:40 MCH 31.8 pg (25.7-33.7) 07/08/17 07:40 MCHC 33.6 g/dl (32.0-36.0) 07/08/17 07:40 RDW 15.2 % (11.6-15.6) 07/08/17 07:40 Plt Count 251 K/MM3 (134-434) 07/08/17 07:40 MPV 8.1 fl (7.5-11.1) 07/08/17 07:40 Sodium 142 mmol/L (136-145) 07/08/17 07:40 Potassium 3.9 mmol/L (3.5-5.1) 07/08/17 07:40 Chloride 111 mmol/L (98-107) H 07/08/17 07:40 Carbon Dioxide 25 mmol/L (21-32) 07/08/17 07:40 Anion Gap 6 (8-16) L 07/08/17 07:40 BUN 8 mg/dL (7-18) 07/08/17 07:40 Creatinine 0.7 mg/dL (0.55-1.02) 07/08/17 07:40 Creat Clearance w eGFR > 60 (>60) 07/08/17 07:40 Random Glucose 82 mg/dL (74-106) 07/08/17 07:40 Calcium 8.3 mg/dL (8.5-10.1) L 07/08/17 07:40 Total Bilirubin 0.6 mg/dL (0.2-1.0) D 07/08/17 07:40 AST 13 U/L (15-37) L 07/08/17 07:40 ALT 18 U/L (12-78) 07/08/17 07:40 Alkaline Phosphatase 44 U/L (45-117) L 07/08/17 07:40 Total Protein 5.6 g/dl (6.4-8.2) L 07/08/17 07:40 Albumin 2.9 g/dl (3.4-5.0) L 07/08/17 07:40 Urine Color Yellow 07/08/17 08:50 Urine Appearance Slcloudy 07/08/17 08:50 Urine pH 5.0 (5.0-8.0) 07/08/17 08:50 Ur Specific [place] 1.019 (1.001-1.035) 07/08/17 08:50 Urine Protein Negative (NEGATIVE) 07/08/17 08:50 Urine Glucose (UA) 1+ (NEGATIVE) H 07/08/17 08:50 Urine Ketones 2+ (NEGATIVE) H 07/08/17 08:50 Urine Blood Negative (NEGATIVE) 07/08/17 08:50 Urine Nitrite Negative (NEGATIVE) 07/08/17 08:50 Urine Bilirubin Negative (NEGATIVE) 07/08/17 08:50 Urine Urobilinogen Negative mg/dL (0.2-1.0) 07/08/17 08:50 Ur Leukocyte Esterase Negative (NEGATIVE) 07/08/17 08:50 RPR Titer Nonreactive (NONREACTIVE) 07/08/17 07:40 HIV 1&2 Antibody Screen Negative 07/08/17 07:40 HIV P24 Antigen Negative 07/08/17 07:40 Assessment: 07/08/17 15:58 WITHDRAWAL SYMPTOM Plan: CONTINUE DETOX,PATIENT REQUESTED REGIMEN TO DALY FROM [facility] TO [facility]
--- NOTE | 2017-07-08 16:30 | CONSULT ---
[facility] Psychiatric Consult - Data Date of interview: 07/08/17 Admission source: [facility] Identifying data: Readmission t [facility] for this 37 y/o AA female seeking detox treatment on for alcohol,cocaine (crack) and nicotine dependence.Patient is single,a mother of two,unemployed and supported by common- law spouse. Substance Abuse History: Discussed with patient in this interview.Mr Granado admits to a 30+ year of alcohol dependence (one pint of Trixie daily) and a more recent addiction to crack (10 years of abuse).Spends around 300 dollars on crack every two weeks as per self-report. Further details in current [facility] report as follows : Smoking history: Current every day smoker. Have you smoked in the past 12 months: Yes. Aproximately how many cigarettes per day: 6. Hx Chewing Tobacco Use: No. Initiated information on smoking cessation: Yes. 'Breaking Loose' booklet given: 07/07/17. - Substance & Tx. History. Hx Alcohol Use: Yes. Hx Substance Use: Yes. Substance Use Type: Alcohol, Cocaine, Marijuana. Hx Substance Use Treatment: Yes (detox/rehab [facility] in past). - Substances Abused. Crack. Route: Smoking. Frequency: Daily. Amount used: $200. Age of first use: 28. Date of Last Use: 07/06/17. Alcohol-cognac. Route: Oral. Frequency: Daily. Amount used: 2 pts. Age of first use: 13. Date of Last Use: 07/07/17. Marijuana. Route: Smoking. Frequency: 3-6 times per week. Amount used: $10. Age of first use: 14. Date of Last Use: 07/05/17 Medical History: Patient endorses good general health.Noted history of treatment for chlamydia. Psychiatric History: Early contact with the mental health system (evaluated by a psychiatrist at age 3).Reasons : behavioral disturbances after biological mother abandoned the child.Patient admits to one psychiatric hospitalization at [facility] for a suicide attempt (overdose with pills).Diagnosed with Bipolar Disorder.Ms Granado declares that she has been prescribed seroquel and trazodone for past few years.Questionable and manipulative historian.Patient is chronically non-adherent to medications and psychiatric OPD care appointments.In fact, she reports total non-compliance with her medications since her discharge from [facility] in January 2017.She used to be followed at the [facility] OPD clinic in [place].Stopped going more than a year ago (as per self-report).Known history of suicide attempts via overdose with medications. Physical/Sexual Abuse/Trauma History: Patient denies. Additional Comment: Urine Drug Screen Results: THC-Marijuana, MARIANELA-Cocaine, BZO- Benzodiazepines.Noted. Mental Status Exam - Mental Status Exam Alert and Oriented to: Time, Place, Person Cognitive Function: Good Patient Appearance: Well Groomed Mood: Nervous, Anxious, Irritable Affect: Mood Congruent Patient Behavior: Cooperative (superficially cooperative,medication-seeking, argumentative and manipulative) Speech Pattern: Clear Voice Loudness: Normal Thought Process: Goal Oriented Thought Disorder: Not Present Hallucinations: Denies Suicidal Ideation: Denies Homicidal Ideation: Denies Insight/Judgement: Poor Sleep: Poorly, Difficulty falling asleep Appetite: Good Muscle strength/Tone: Normal Gait/Station: Normal Psychiatric Findings - Problem List ([place] 1, 2,3) (1) Alcohol dependence with uncomplicated withdrawal Current Visit: Yes Status: Acute (2) Cocaine dependence Current Visit: Yes Status: Acute (3) Cannabis dependence Current Visit: Yes Status: Acute (4) Bipolar disorder Current Visit: Yes Status: Acute Comment: On medications. (5) Substance induced mood disorder Current Visit: Yes Status: Acute (6) Insomnia Current Visit: Yes Status: Acute - Initial Treatment Plan Initial Treatment Plan: Records are revisited.Psychoeducation.Detoxification in progress.Medications : seroquel 100 mg po bid + trazodone 50 mg po hs.Both drugs can be titrated (up to 200 mg twice a day for seroquel and 150 mg for trazodone) if NO oversedation observed in next 24 hours.Strategy explained to patient.Side effects/benefits discussed as well.Ms Granado has agreed (verbally to follow this careplan.Observation.
--- NOTE | 2017-07-08 18:46 | EKG ---
Test Reason : Blood Pressure : / mmHG Vent. Rate : 087 BPM Atrial Rate : 087 BPM P-R Int : 142 ms QRS Dur : 068 ms QT Int : 356 ms P-R-T Axes : 065 040 063 degrees QTc Int : 428 ms NORMAL SINUS RHYTHM NORMAL ECG WHEN COMPARED WITH ECG OF 04-FEB-2017 07:12, NO SIGNIFICANT CHANGE WAS FOUND Confirmed by MARCELO SAMUELS MD ([id number]) on 07/08/2017 6:46:03 PM Referred By: Confirmed By:MARCELO SAMUELS MD
[2017-07-08] MEDS ORDERED: QUEtiapine FUMARATE 100 MG TABLET (FP) PO SCH ×2 (22:00)
[2017-07-08] MEDS ORDERED: chlordiazePOXIDE HCL 25 MG CAPSULE PO SCH (23:00)
[2017-07-08] MEDS: traZODone HCL 50 MG TABLET (FP) PO SCH (23:34)
[2017-07-08] MEDS: THIAMINE HCL 100 MG TABLET (FP) PO SCH (23:34)
[2017-07-09] MEDS: diazePAM 5 MG TABLET PO SCH ×3 (05:33→22:45)
[2017-07-09] MEDS: PRENATAL VITAMINS W/ FOLIC ACID TABLET (FP) PO SCH (11:22)
[2017-07-09] MEDS: CLINDAMYCIN PHOSPHATE 1% TOPICAL SOLUTION 30 ML BOTTLE TP SCH (11:22)
[2017-07-09] MEDS: NICOTINE 14 MG/24 HOURS TOPICAL PATCH TD SCH (11:22)
[2017-07-09] MEDS: diazePAM 5 MG TABLET PO PRN ×2 (11:25→17:06)
--- NOTE | 2017-07-09 11:50 | PN ---
S CIWA - CIWA Score Nausea/Vomitin-Mild Nausea/No Vomiting Muscle Tremors: 4-Moderate,w/Arms Extend Anxiety: 3 Agitation: 3 Paroxysmal Sweats: 1-Minimal Palms Moist Orientation: 0-Oriented Tacttile Disturbances: 0-None Auditory Disturbances: 0-None Visual Disturbances: 0-None Headache: 0-None Present CIWA-Ar Total Score: 12 BHS Progress Note (SOAP) Subjective: sweat tremor anxiety requests follow up with psychiatrist for anxiety restlessness sleeplessness Objective: 07/09/17 11:50 Vital Signs Temperature 98.1 F 07/09/17 10:05 Pulse Rate 941 H 07/09/17 10:05 Respiratory Rate 20 07/09/17 10:05 Blood Pressure 116/67 07/09/17 10:05 O2 Sat by Pulse Oximetry (%) Laboratory Last Values WBC 6.2 K/mm3 (4.0-10.0) 07/08/17 07:40 RBC 3.78 M/mm3 (3.60-5.2) 07/08/17 07:40 Hgb 12.0 GM/dL (10.7-15.3) 07/08/17 07:40 Hct 35.7 % (32.4-45.2) 07/08/17 07:40 MCV 94.5 fl (80-96) 07/08/17 07:40 MCH 31.8 pg (25.7-33.7) 07/08/17 07:40 MCHC 33.6 g/dl (32.0-36.0) 07/08/17 07:40 RDW 15.2 % (11.6-15.6) 07/08/17 07:40 Plt Count 251 K/MM3 (134-434) 07/08/17 07:40 MPV 8.1 fl (7.5-11.1) 07/08/17 07:40 Sodium 142 mmol/L (136-145) 07/08/17 07:40 Potassium 3.9 mmol/L (3.5-5.1) 07/08/17 07:40 Chloride 111 mmol/L (98-107) H 07/08/17 07:40 Carbon Dioxide 25 mmol/L (21-32) 07/08/17 07:40 Anion Gap 6 (8-16) L 07/08/17 07:40 BUN 8 mg/dL (7-18) 07/08/17 07:40 Creatinine 0.7 mg/dL (0.55-1.02) 07/08/17 07:40 Creat Clearance w eGFR > 60 (>60) 07/08/17 07:40 Random Glucose 82 mg/dL (74-106) 07/08/17 07:40 Calcium 8.3 mg/dL (8.5-10.1) L 07/08/17 07:40 Total Bilirubin 0.6 mg/dL (0.2-1.0) D 07/08/17 07:40 AST 13 U/L (15-37) L 07/08/17 07:40 ALT 18 U/L (12-78) 07/08/17 07:40 Alkaline Phosphatase 44 U/L (45-117) L 07/08/17 07:40 Total Protein 5.6 g/dl (6.4-8.2) L 07/08/17 07:40 Albumin 2.9 g/dl (3.4-5.0) L 07/08/17 07:40 Urine Color Yellow 07/08/17 08:50 Urine Appearance Slcloudy 07/08/17 08:50 Urine pH 5.0 (5.0-8.0) 07/08/17 08:50 Ur Specific [place] 1.019 (1.001-1.035) 07/08/17 08:50 Urine Protein Negative (NEGATIVE) 07/08/17 08:50 Urine Glucose (UA) 1+ (NEGATIVE) H 07/08/17 08:50 Urine Ketones 2+ (NEGATIVE) H 07/08/17 08:50 Urine Blood Negative (NEGATIVE) 07/08/17 08:50 Urine Nitrite Negative (NEGATIVE) 07/08/17 08:50 Urine Bilirubin Negative (NEGATIVE) 07/08/17 08:50 Urine Urobilinogen Negative mg/dL (0.2-1.0) 07/08/17 08:50 Ur Leukocyte Esterase Negative (NEGATIVE) 07/08/17 08:50 RPR Titer Nonreactive (NONREACTIVE) 07/08/17 07:40 HIV 1&2 Antibody Screen Negative 07/08/17 07:40 HIV P24 Antigen Negative 07/08/17 07:40 lab noted Assessment: 07/09/17 11:50 withdrawal sx Plan: continue detox
[2017-07-09] MEDS: QUEtiapine FUMARATE 100 MG TABLET (FP) PO SCH ×2 (12:01→22:45)
[2017-07-09] MEDS: THIAMINE HCL 100 MG TABLET (FP) PO SCH (22:44)
[2017-07-09] MEDS: traZODone HCL 50 MG TABLET (FP) PO SCH (22:45)
[2017-07-09] MEDS ORDERED: chlordiazePOXIDE 5 MG CAPSULE PO SCH (23:00)
[2017-07-10] MEDS: diazePAM 5 MG TABLET PO PRN ×3 (08:35→19:20)
[2017-07-10] MEDS: NICOTINE 14 MG/24 HOURS TOPICAL PATCH TD SCH (10:58)
[2017-07-10] MEDS: QUEtiapine FUMARATE 100 MG TABLET (FP) PO SCH (10:59)
[2017-07-10] MEDS: diazePAM 5 MG TABLET PO SCH ×2 (10:59→22:26)
[2017-07-10] MEDS: PRENATAL VITAMINS W/ FOLIC ACID TABLET (FP) PO SCH (10:59)
[2017-07-10] MEDS: CLINDAMYCIN PHOSPHATE 1% TOPICAL SOLUTION 30 ML BOTTLE TP SCH (10:59)
[2017-07-10] MEDS ORDERED: QUEtiapine FUMARATE 100 MG TABLET (FP) PO STA (11:10)
[2017-07-10] MEDS ORDERED: QUEtiapine FUMARATE 100 MG TABLET (FP) PO SCH (11:12)
--- NOTE | 2017-07-10 11:15 | PN ---
Psychiatric Progress Note Vital Signs: Vital Signs Period Temp Pulse Resp BP Sys/Navas Pulse Ox Last 24 Hr 97.9 F-98.6 F 86-101 18-20 108-113/64-71 Date of Session: 07/10/17 Chief Complaint:: Seroquel dose HPI: Patient reports taking Seroquel 200mg po bid prior to admission anmd asking to0 restart prfeadmission dosage Current Medications: Active Medications Generic Name Dose Route Start Last Admin Trade Name Freq PRN Reason Stop Dose Admin Acetaminophen 650 mg 07/07/17 16:58 Tylenol - PO Q4H PRN FEVER Al Hydroxide/Mg Hydroxide 30 ml 07/07/17 16:58 Mylanta Oral Suspension - PO Q6H PRN DYSPEPSIA Clindamycin Phosphate 1 applic 07/07/17 10:00 07/10/17 10:59 Cleocin 1% Topical Solution - TP 1 applic DAILY ОЛЬГА Administration Diazepam 5 mg 07/10/17 10:00 07/10/17 10:59 Valium - PO 07/11/17 22:01 5 mg BID ОЛЬГА Administration Diazepam 5 mg 07/12/17 10:00 Valium - PO 07/12/17 10:01 DAILY ОЛЬГА Diazepam 10 mg 07/08/17 11:46 07/10/17 08:35 Valium - PO 07/11/17 11:45 10 mg Q4H PRN Administration WITHDRAWAL(CONT SUBST) Eucalyptus/Menthol/Phenol/Sorbitol 1 each 07/07/17 16:58 Cepastat Lozenge - MM Q4H PRN SORE THROAT Guaifenesin 10 ml 07/07/17 16:58 Robitussin Dm - PO Q6H PRN COUGH Hydroxyzine Pamoate 50 mg 07/07/17 16:58 07/07/17 22:39 Vistaril - PO 50 mg Q4H PRN Administration AGITATION Ibuprofen 400 mg 07/07/17 16:58 Motrin - PO Q6H PRN PAIN LEVEL 4-6 Loperamide HCl 4 mg 07/07/17 16:58 Imodium - PO Q6H PRN DIARRHEA Magnesium Citrate 300 ml 07/07/17 16:58 Citroma - PO Q48H PRN CONSTIPATION Magnesium Hydroxide 30 ml 07/07/17 16:58 Milk Of Magnesia - PO DAILY PRN CONSTIPATION Nicotine 14 mg 07/07/17 17:30 07/10/17 10:58 Nicoderm Patch - TD Not Given DAILY ОЛЬГА Nicotine Polacrilex 2 mg 07/07/17 16:58 Nicorette Gum - BC Q2H PRN NICOTINE REPLACEMENT RX Multivit/Folic Acid/Iron 1 tab 07/08/17 10:00 07/10/17 10:59 Vitamins (Sjr) - PO 1 tab DAILY ОЛЬГА Administration Pseudoephedrine/Triprolidine 1 combo 07/07/17 16:58 Actifed - PO TID PRN NASAL CONGESTION Quetiapine Fumarate 100 mg 07/10/17 11:10 Seroquel - PO 07/10/17 11:11 NOW STA Quetiapine Fumarate 200 mg 07/10/17 11:12 Seroquel - PO BID ОЛЬГА Thiamine HCl 100 mg 07/07/17 22:00 07/09/17 22:44 Vitamin B1 - PO 100 mg HS ОЛЬГА Administration Trazodone HCl 50 mg 07/08/17 22:00 07/09/17 22:45 Desyrel - PO 50 mg HS ОЛЬГА Administration Medication(s) Change(s): Seroquel 200mg po bid Mental Status Exam - Mental Status Exam Alert and Oriented to: Person Cognitive Function: Fair Patient Appearance: Well Groomed Mood: Anxious Affect: Euthymic Patient Behavior: Cooperative Speech Pattern: Excessive Voice Loudness: Normal Thought Process: Goal Oriented Thought Disorder: Being Controlled Hallucinations: Denies Suicidal Ideation: Denies Homicidal Ideation: Denies Insight/Judgement: Fair Sleep: Difficulty falling asleep Appetite: Fair Muscle strength/Tone: Normal Gait/Station: Normal Psychiatric Treatment Plan - Problem List (1) Alcohol dependence with uncomplicated withdrawal Current Visit: Yes (2) Bipolar disorder Current Visit: Yes Comment: On medications. (3) Cannabis dependence Current Visit: Yes (4) Substance induced mood disorder Current Visit: Yes Initial treatment plan: Seroquel 200mg po bid
--- NOTE | 2017-07-10 11:55 | PN ---
BHS Progress Note (SOAP) Subjective: patient reports that she is feeling better today no tremor less sweat able to sleep throughout the night worried about the house kearney patient walks out the detox unit to data security coordinator for her kearney patient been brought back to the unit continue detox regimen, denies pain, patient wants to complete detox regimen patient wants to [facility] Objective: 07/10/17 11:53 Vital Signs Temperature 98.4 F 07/09/17 22:59 Pulse Rate 101 H 07/09/17 22:59 Respiratory Rate 18 07/10/17 03:30 Blood Pressure 113/71 07/09/17 22:59 O2 Sat by Pulse Oximetry (%) Laboratory Last Values WBC 6.2 K/mm3 (4.0-10.0) 07/08/17 07:40 RBC 3.78 M/mm3 (3.60-5.2) 07/08/17 07:40 Hgb 12.0 GM/dL (10.7-15.3) 07/08/17 07:40 Hct 35.7 % (32.4-45.2) 07/08/17 07:40 MCV 94.5 fl (80-96) 07/08/17 07:40 MCH 31.8 pg (25.7-33.7) 07/08/17 07:40 MCHC 33.6 g/dl (32.0-36.0) 07/08/17 07:40 RDW 15.2 % (11.6-15.6) 07/08/17 07:40 Plt Count 251 K/MM3 (134-434) 07/08/17 07:40 MPV 8.1 fl (7.5-11.1) 07/08/17 07:40 Sodium 142 mmol/L (136-145) 07/08/17 07:40 Potassium 3.9 mmol/L (3.5-5.1) 07/08/17 07:40 Chloride 111 mmol/L (98-107) H 07/08/17 07:40 Carbon Dioxide 25 mmol/L (21-32) 07/08/17 07:40 Anion Gap 6 (8-16) L 07/08/17 07:40 BUN 8 mg/dL (7-18) 07/08/17 07:40 Creatinine 0.7 mg/dL (0.55-1.02) 07/08/17 07:40 Creat Clearance w eGFR > 60 (>60) 07/08/17 07:40 Random Glucose 82 mg/dL (74-106) 07/08/17 07:40 Calcium 8.3 mg/dL (8.5-10.1) L 07/08/17 07:40 Total Bilirubin 0.6 mg/dL (0.2-1.0) D 07/08/17 07:40 AST 13 U/L (15-37) L 07/08/17 07:40 ALT 18 U/L (12-78) 07/08/17 07:40 Alkaline Phosphatase 44 U/L (45-117) L 07/08/17 07:40 Total Protein 5.6 g/dl (6.4-8.2) L 07/08/17 07:40 Albumin 2.9 g/dl (3.4-5.0) L 07/08/17 07:40 Urine Color Yellow 07/08/17 08:50 Urine Appearance Slcloudy 07/08/17 08:50 Urine pH 5.0 (5.0-8.0) 07/08/17 08:50 Ur Specific [place] 1.019 (1.001-1.035) 07/08/17 08:50 Urine Protein Negative (NEGATIVE) 07/08/17 08:50 Urine Glucose (UA) 1+ (NEGATIVE) H 07/08/17 08:50 Urine Ketones 2+ (NEGATIVE) H 07/08/17 08:50 Urine Blood Negative (NEGATIVE) 07/08/17 08:50 Urine Nitrite Negative (NEGATIVE) 07/08/17 08:50 Urine Bilirubin Negative (NEGATIVE) 07/08/17 08:50 Urine Urobilinogen Negative mg/dL (0.2-1.0) 07/08/17 08:50 Ur Leukocyte Esterase Negative (NEGATIVE) 07/08/17 08:50 RPR Titer Nonreactive (NONREACTIVE) 07/08/17 07:40 HIV 1&2 Antibody Screen Negative 07/08/17 07:40 HIV P24 Antigen Negative 07/08/17 07:40 lab noted Assessment: 07/10/17 11:53 mild withdrawal sx patient is alert oriented x 3 steady gait, no acute distress, Plan: medically supervised detox
[2017-07-10] MEDS: QUEtiapine FUMARATE 200 MG TABLET PO SCH (22:25)
[2017-07-10] MEDS: traZODone HCL 50 MG TABLET (FP) PO SCH (22:25)
[2017-07-10] MEDS: THIAMINE HCL 100 MG TABLET (FP) PO SCH (22:26)
[2017-07-10] MEDS ORDERED: chlordiazePOXIDE HCL 10 MG CAPSULE PO SCH (23:00)
[2017-07-11] MEDS: QUEtiapine FUMARATE 200 MG TABLET PO SCH (10:47)
[2017-07-11] MEDS: diazePAM 5 MG TABLET PO SCH (10:47)
[2017-07-11] MEDS: PRENATAL VITAMINS W/ FOLIC ACID TABLET (FP) PO SCH (10:47)
[2017-07-11] MEDS: CLINDAMYCIN PHOSPHATE 1% TOPICAL SOLUTION 30 ML BOTTLE TP SCH (10:48)
[2017-07-11] MEDS: NICOTINE 14 MG/24 HOURS TOPICAL PATCH TD SCH (10:49)
--- NOTE | 2017-07-11 10:54 | DS ---
[facility] Detox Discharge Summary Admission Date: 07/07/17 Discharge Date: 07/11/17 - History Present History: Alcohol Dependence Additional Comments: patient is alert oriented x 3 steady gait denies pain denies withdrawal sx cardiac s1s2 lungs clear bilaterally abdomen soft none tender extremities full range of motion patient completed detox and wants to go to rehab as per counselor arranged - Physical Exam Results Vital Signs: Vital Signs Temperature 98.2 F 07/11/17 09:52 Pulse Rate 96 H 07/11/17 09:52 Respiratory Rate 18 07/11/17 09:52 Blood Pressure 91/66 07/11/17 09:52 O2 Sat by Pulse Oximetry (%) Pertinent Admission Physical Exam Findings: withdrawal sx Vital Signs Temperature 98.2 F 07/11/17 09:52 Pulse Rate 96 H 07/11/17 09:52 Respiratory Rate 18 07/11/17 09:52 Blood Pressure 91/66 07/11/17 09:52 O2 Sat by Pulse Oximetry (%) Laboratory Last Values WBC 6.2 K/mm3 (4.0-10.0) 07/08/17 07:40 RBC 3.78 M/mm3 (3.60-5.2) 07/08/17 07:40 Hgb 12.0 GM/dL (10.7-15.3) 07/08/17 07:40 Hct 35.7 % (32.4-45.2) 07/08/17 07:40 MCV 94.5 fl (80-96) 07/08/17 07:40 MCH 31.8 pg (25.7-33.7) 07/08/17 07:40 MCHC 33.6 g/dl (32.0-36.0) 07/08/17 07:40 RDW 15.2 % (11.6-15.6) 07/08/17 07:40 Plt Count 251 K/MM3 (134-434) 07/08/17 07:40 MPV 8.1 fl (7.5-11.1) 07/08/17 07:40 Sodium 142 mmol/L (136-145) 07/08/17 07:40 Potassium 3.9 mmol/L (3.5-5.1) 07/08/17 07:40 Chloride 111 mmol/L (98-107) H 07/08/17 07:40 Carbon Dioxide 25 mmol/L (21-32) 07/08/17 07:40 Anion Gap 6 (8-16) L 07/08/17 07:40 BUN 8 mg/dL (7-18) 07/08/17 07:40 Creatinine 0.7 mg/dL (0.55-1.02) 07/08/17 07:40 Creat Clearance w eGFR > 60 (>60) 07/08/17 07:40 Random Glucose 82 mg/dL (74-106) 07/08/17 07:40 Calcium 8.3 mg/dL (8.5-10.1) L 07/08/17 07:40 Total Bilirubin 0.6 mg/dL (0.2-1.0) D 07/08/17 07:40 AST 13 U/L (15-37) L 07/08/17 07:40 ALT 18 U/L (12-78) 07/08/17 07:40 Alkaline Phosphatase 44 U/L (45-117) L 07/08/17 07:40 Total Protein 5.6 g/dl (6.4-8.2) L 07/08/17 07:40 Albumin 2.9 g/dl (3.4-5.0) L 07/08/17 07:40 Urine Color Yellow 07/08/17 08:50 Urine Appearance Slcloudy 07/08/17 08:50 Urine pH 5.0 (5.0-8.0) 07/08/17 08:50 Ur Specific [place] 1.019 (1.001-1.035) 07/08/17 08:50 Urine Protein Negative (NEGATIVE) 07/08/17 08:50 Urine Glucose (UA) 1+ (NEGATIVE) H 07/08/17 08:50 Urine Ketones 2+ (NEGATIVE) H 07/08/17 08:50 Urine Blood Negative (NEGATIVE) 07/08/17 08:50 Urine Nitrite Negative (NEGATIVE) 07/08/17 08:50 Urine Bilirubin Negative (NEGATIVE) 07/08/17 08:50 Urine Urobilinogen Negative mg/dL (0.2-1.0) 07/08/17 08:50 Ur Leukocyte Esterase Negative (NEGATIVE) 07/08/17 08:50 RPR Titer Nonreactive (NONREACTIVE) 07/08/17 07:40 HIV 1&2 Antibody Screen Negative 07/08/17 07:40 HIV P24 Antigen Negative 07/08/17 07:40 lab noted - Treatment Hospital Course: Detox Protocol Followed, Detoxed Safely, Responded well, Discharged Condition Good, Rehab Referral Accepted Patient has Accepted a Rehab Referral to: [facility] - Medication Discharge Medications: Ambulatory Orders traZODone HCL [Desyrel -] 150 mg PO HS #90 tablet 06/01/15 Quetiapine Fumarate [Seroquel -] 200 mg PO BID #60 tablet 07/10/17 - Diagnosis (1) Alcohol dependence with uncomplicated withdrawal Status: Acute (2) Bipolar 2 disorder Status: Suspected - AMA Did Patient Leave Against Medical Advice: No
[2017-07-11] MEDS: hydrOXYzine PAMOATE 50 MG CAPSULE (FP) PO PRN (13:22)
[2017-07-11 14:51] VITALS: BP 121/76; PULSE 116; TEMP 96.8
[2017-07-12] MEDS ORDERED: diazePAM 5 MG TABLET PO SCH (10:00)
== END 2017-07-11 16:59 | disposition home or self-care (01) | DRG 774 ==
LOC: YASAS 12:02 → Y6N 16:56
PROVIDERS: ADMIT Internal Medicine; ATTEND Internal Medicine
PROC: HZ2ZZZZ Detoxification Services for Substance Abuse Treatment (ICD-10-PCS; principal; 2017-07-07)
DX: F10.230 Alcohol dependence with withdrawal, uncomplicated (principal); F14.20 Cocaine dependence, uncomplicated; F12.20 Cannabis dependence, uncomplicated; F19.24 Other psychoactive substance dependence with psychoactive substance-induced mood disorder; G47.00 Insomnia, unspecified; E86.0 Dehydration; Z86.19 Personal history of other infectious and parasitic diseases; Z91.5 Personal history of self-harm
CPT/HCPCS: 36415; 80053; 81003; 85027; 86593; 87389; 93005; 93010